=== PATIENT | male | born 1995 | race Two or more races ===

== ENCOUNTER 2020-08-12 00:55 | Emergency (ER) | payer MEDICAID ==
[~2020-08-12] VITALS: Ht 172.7 cm; Wt 109.8 kg
--- NOTE | 2020-08-12 01:00 | NUR ---
BIBA; patient found on floor of bathroom with his belongings scattered. Denies trauma. No pain. Patient admits to ETOH and taking Soma and Mazama tonight.
--- NOTE | 2020-08-12 02:15 | NUR ---
Patient sleeping in gurney. Respirations even and unlabored.
--- NOTE | 2020-08-12 03:42 | NUR ---
Patient sleeping in gurney. Respirations even and unlabored.
--- NOTE | 2020-08-12 04:29 | NUR ---
Patient sleeping in gurney. Respirations even and unlabored.
--- NOTE | 2020-08-12 05:15 | NUR ---
RECEIVED REPORT FOR PT AT THIS TIME. PT REMAINS ASLEEP, NO CHANGES, AND ON CR MONITOR, WITH SIDERAILS UP X2 AND CALL LIGHT WITHIN REACH.
--- NOTE | 2020-08-12 05:27 | NUR ---
PT SLEEPING AND AWAKENS SOME WHEN CALLED OUT. PT MAINTAINING AIRWAY WITHOUT PROBLEM, ON CR MONITOR, AND O2 SATS 100%. PT STILL SLEEPY, AND LIGHTS ARE ON, AND PT WOKEN UP TO START D/C PROCESS.
--- NOTE | 2020-08-12 06:28 | NUR ---
PT TRYING TO WAKE UP, AND IS STILL GROGGY, AND UNABLE OPEN EYES YET, BUT MOVES AROUND AND IS TRYING. PT ON CR MONITOR, AND O2 SATS INTACT AT 98%. AIRWAY INTACT, AND GOOD AERATION AND OXYGENATION.
--- NOTE | 2020-08-12 06:51 | NUR ---
REPORT FROM JOSE L RN. THIS RN ASSUMING CARE OF PT.
--- NOTE | 2020-08-12 06:52 | NUR ---
REPORT TO YENI CROSS.
[2020-08-12 07:03] VITALS: BP 117/79
--- NOTE | 2020-08-12 07:06 | NUR ---
pt asleep when entering room with even and unlabored respirations. pt awoken and denies hi/si. pt observed to be drowsy. vss. mjn.
--- NOTE | 2020-08-12 07:37 | NUR ---
Patient given discharge instructions and they have confirmed that they understand the instructions. Patient ambulatory with steady gait with all belongings. Patient to call for safe ride home.
== END 2020-08-12 07:39 | disposition home or self-care (01) ==
LOC: ED 07:33
DX: F10.120 Alcohol abuse with intoxication, uncomplicated (principal); G31.2 Degeneration of nervous system due to alcohol; R00.0 Tachycardia, unspecified; F17.210 Nicotine dependence, cigarettes, uncomplicated; Y90.0 Blood alcohol level of less than 20 mg/100 ml
CPT/HCPCS: 99283; 99406